=== PATIENT | male | born 1985 | race Caucasian/White ===

== ENCOUNTER 2020-09-11 08:39 | Outpatient (CLI) | payer BC, SELFPAY ==
--- NOTE | 2020-10-04 23:20 | WPDHOMESLEEP ---
Sleep Study - Home Unattended Date of Study: 09/11/20 Ordering Provider: Lexi Hodge NP Interpreting Provider: Magui Callahan MD Home Sleep Study Type: Apnea Link Air Height: 1.88 m Weight: 90.265 kg Body Mass Index: 25.5 Neck Circumference (inches): 16 [place]: 3 Reason for Sleep Study High blood pressure at the dentist, constant loud snoring Sleep History Ruy Spain is a 35 year old man who had high blood pressure discovered at the dentist; he was referred to [facility] where he was diagnosed with obstructive sleep apnea, and has been on CPAP which benefits him greatly. He does not wake up feeling short of breath or wake at night with heartburn, belching or coughing. He constantly snores loudly. Although he does not have trouble sleeping with a cold or waking at night gasping for breath, he frequently has breathing problems at night reported to him by others. He does not sweat excessively at night, have palpitations at night, fall asleep in the day, fall asleep involuntarily, or fall asleep while driving. He does not have loss of muscle tone with strong emotion, rarely has daytime difficulties due to excessive sleepiness, and does not have paralysis om waking or falling asleep. He rarely has vivid dream like scenes on waking or falling asleep. He is not afraid to go to sleep. He rarely has nightmares, occasionally remembers his dreams. He denies racing thoughts. He rarely feels sad or depressed, rarely has anxiety, Rarely has muscular tension, notice parts of his body jerking, and never notes kicking at night. He does not have uncomfortable crawling feelings in his legs at night. He does not have leg pain at night. He does not have leg pain at night, rarely grinds his teeth at night. He is not bothered by pain in the day, not awakened bu pain at night. He occasionally wakes up feeling stiff in the morning. He does not wake with sore muscles or pain the joints and spine. There is a family history of sleep apnea in his parents. He has occasional nasal congestion and uses Afrin nasal spray for 3 days when needed. He was diagnosed with obstructive with sleep apnea 4-5 years ago, and does not know the settings. He has lost 80 lb since he was diagnosed with hypertension 4-5 years ago. He uses CPAP regularly, and feels fatigued when he does not use it. Normal bedtime is 8:00 p.m. falling asleep in less than a minutes, waking 1-2 times at night for 30 seconds, uses the bathroom and returns to sleep. He wakes at 3:35 a.m. when he works. He works shift work. On the days he is not working, he goes to bed at 9:00 p.m., wakes between 8:00 a.m. and 9:00 a.m. He does not takes naps in the afternoon. A short nap may be refreshing. He feels good most mornings on waking. He feels better in the morning compared to other times of day. Habits: Never smoked tobacco. Caffeine 3-4 cups coffee a day; Alcohol 2-3 per week, no recreational drugs. [facility] Past Medical History Medical History BMI 26.0-26.9,adult Encounter to establish care Excess sun exposure HTN (hypertension) Lumbago without sciatica GAVIOTA on CPAP Seasonal allergies Family History Family History (Updated 05/24/20 @ 10:06 by Jerardo Soto CMA) Father Cancer Heart disease Sibling Heart disease Grandparent Cancer Hypertension Grandparent Cancer Hypertension Heart disease Social History Social History (Updated 05/24/20 @ 10:07 by Jerardo Soto CMA) Smoking status: Never smoker Alcohol intake: current Substance use: never Medications Home Medications Medication Instructions Recorded Confirmed Type No Home Medications 05/24/20 05/24/20 History Sleep Procedure This test was performed using 4 channel monitoring including respiratory effort channel, snoring channel, heart rate channel, and oxygen saturation channel. This study was scored using [facility] guidelines. Sleep Architecture
[2020-10-04 23:58] VITALS: BMI 25.5
== END 2020-09-12 09:59 | disposition home or self-care (01) ==
PROVIDERS: PCP Nurse Practitioner Family; Visit Provider Nurse Practitioner Family
DX: G47.33 Obstructive sleep apnea (adult) (pediatric) (principal); Z99.89 Dependence on other enabling machines and devices
CPT/HCPCS: 95806

== ENCOUNTER 2020-10-31 07:41 | Outpatient (CLI) | payer BC, SELFPAY | END 2020-11-01 02:59 | disposition hospice, home (50) | LOC: ANHCSM 07:44 | PROVIDERS: PCP Nurse Practitioner Family; Visit Provider Nurse Practitioner Family | DX: G47.33 Obstructive sleep apnea (adult) (pediatric) (principal) | CPT/HCPCS: 95811; 99199 ==

== ENCOUNTER 2020-12-04 07:30 | Outpatient (CLI) | payer BC, SELFPAY ==
[2020-12-23 16:28] VITALS: BMI 25.4
--- NOTE | 2020-12-23 16:28 | WPDSLEEPSTUD ---
Sleep Study Date of Study: 12/04/20 Ordering Provider: Lexi Hodge NP Interpreting Physician: Magui Callahan MD Sleep Study Type: Polysomnogram Height: 1.88 m Weight: 90.038 kg Body Mass Index: 25.4 Neck Circumference (inches): 16 [place]: 3 Reason for Sleep Study * High blood pressure at the dentist, constant loud snoring; a home sleep test using ApneaLink September 11, 2020 without sleep-disordered breathing; apnea-hypopnea index is normal 1.3, lowest saturation is 89%, and snoring is mild. He presents for an in-lab sleep study. Sleep History Ruy Spain is a 35 year old man who had high blood pressure discovered at the dentist; he was referred to [facility] where he was diagnosed with obstructive sleep apnea, and has been on CPAP which benefits him greatly. He does not wake up feeling short of breath or wake at night with heartburn, belching or coughing. He constantly snores loudly. Although he does not have trouble sleeping with a cold or waking at night gasping for breath, he frequently has breathing problems at night reported to him by others. He does not sweat excessively at night, have palpitations at night, fall asleep in the day, fall asleep involuntarily, or fall asleep while driving. He does not have loss of muscle tone with strong emotion, rarely has daytime difficulties due to excessive sleepiness, and does not have paralysis om waking or falling asleep. He rarely has vivid dream like scenes on waking or falling asleep. He is not afraid to go to sleep. He rarely has nightmares, occasionally remembers his dreams. He denies racing thoughts. He rarely feels sad or depressed, rarely has anxiety, Rarely has muscular tension, notice parts of his body jerking, and never notes kicking at night. He does not have uncomfortable crawling feelings in his legs at night. He does not have leg pain at night. He does not have leg pain at night, rarely grinds his teeth at night. He is not bothered by pain in the day, not awakened by pain at night. He occasionally wakes up feeling stiff in the morning. He does not wake with sore muscles or pain the joints and spine. There is a family history of sleep apnea in his parents. He has occasional nasal congestion and uses Afrin nasal spray for 3 days when needed. He was diagnosed with obstructive with sleep apnea 4-5 years ago, and does not know the settings. He has lost 80 lb since he was diagnosed with hypertension 4-5 years ago. He uses CPAP regularly, and feels fatigued when he does not use it. Normal bedtime is 8:00 p.m. falling asleep in less than a minutes, waking 1-2 times at night for 30 seconds, uses the bathroom and returns to sleep. He wakes at 3:35 a.m. when he works. He works shift work. On the days he is not working, he goes to bed at 9:00 p.m., wakes between 8:00 a.m. and 9:00 a.m. He does not takes naps in the afternoon. A short nap may be refreshing. He feels good most mornings on waking. He feels better in the morning compared to other times of day. Habits: Never smoked tobacco. Caffeine 3-4 cups coffee a day; Alcohol 2-3 per week, no recreational drugs. [facility] Past Medical History Medical History BMI 26.0-26.9,adult Encounter to establish care Excess sun exposure HTN (hypertension) Lumbago without sciatica GAVIOTA on CPAP Seasonal allergies Family History Family History Father Cancer Heart disease Sibling Heart disease Grandparent Cancer Hypertension Grandparent Cancer Hypertension Heart disease Social History Social History Smoking status: Never smoker Alcohol intake: current Substance use: never Medications Home Medications Medication Instructions Recorded Confirmed Type No Home Medications 05/24/20 05/24/20 History Sleep Procedure This test was performed using the S
== END 2020-12-05 02:34 | disposition home or self-care (01) ==
LOC: ANHCSM 07:30
PROVIDERS: PCP Nurse Practitioner Family; Visit Provider Nurse Practitioner Family
DX: G47.33 Obstructive sleep apnea (adult) (pediatric) (principal)
CPT/HCPCS: 95810

== ENCOUNTER 2023-05-09 11:43 | Observation (INO) | payer OTHER, SELFPAY ==
[2023-05-09] VITALS (37 sets, daily range): BP systolic 111–161; BP diastolic 69–118; PULSE 78–194; RESP 10–24; TEMP 36.7–36.8; O2SAT 96–100; BMI 32.6
--- NOTE | ~2023-05-09 | XR_ITS ---
XR chest 2V DATE: 05/09/2023 12:31 INDICATION: Palpitations. Superventricular tachycardia. TECHNIQUE: PA and lateral views COMPARISON: 11/12/2005 portable AP chest FINDINGS: Normal heart size. No hilar or mediastinal enlargement. No pulmonary infiltrate or consolid ation, pleural effusion or pulmonary vascular congestion or pneumothorax is detected. IMPRESSION: No active cardiopulmonary disease Reviewed, dictated and finalized at location A.
--- NOTE | 2023-05-09 11:49 | ECG_ITS ---
Measurements Intervals [place] Rate: 170 P: [place]: 0 QRS: 33 QRSD: 71 T: 50 QT: 245 QTc: 413 Interpretive Statements ATRIAL FIBRILLATION WITH RAPID VENTRICULAR RESPONSE NONSPECIFIC T-WAVE ABNORMALITY- INF/LAT LEADS BASELINE ARTIFACT- I, II, III, AVR, AVL, AVF, V4-V6 ABNORMAL ECG NO PREVIOUS ECG AVAILABLE FOR COMPARISON Electronically Signed On 05-09-2023 16:52:33 CDT by Mihir Olsen D.O.
[2023-05-09 11:56] LABS: Basophils Absolute Auto 0.1 K/mm3 (0.0-0.1); Basophils Percent Auto 1.3 % (0.2-1.2); Eosinophils Absolute Auto 0.1 K/mm3 (0-0.3); Hematocrit 52.4 % (42.0-52.0); Hemoglobin 17.7 g/dL (14.0-18.0); Immature Granulocyte Absolute 0.01 K/mm3 (0.00-0.031); Immature Granulocyte Percent A 0.1 % (0-0.5); Lymphocytes Absolute Auto 3.27 K/mm3 (0.9-3.2); Lymphocytes Percent Auto 47.2 % (18.3-44.2); Mean Corpuscular HGB Conc 33.8 g/dl (32-36); Mean Corpuscular Hemoglobin 29.8 pg (26-34); Mean Corpuscular Volume 88.4 fl (80-100); Mean Platelet Volume 9.4 fl (7.4-10.4); Monocytes Absolute Auto 0.7 K/mm3 (0.1-0.6); Monocytes Percent Auto 10.2 % (2.6-8.5); Neutrophils Absolute Auto 2.8 K/mm3 (1.3-6.7); Neutrophils Percent Auto 40.2 % (45.5-73.1); Platelet Count Result 233 k/mm3 (150-375); Red Blood Count 5.93 M/mm3 (4.6-6.20); Red Cell Distribution Width 12.8 % (11.5-14.5); White Blood Count 6.9 K/mm3 (4.5-10.0)
[2023-05-09] MEDS: dilTIAZem 100 MG/100 ML 100 MG/100 ML BAG IV CONT ×2 (11:56→19:22)
[2023-05-09] MEDS: dilTIAZem HCl INJ 25 MG/5 ML VIAL 20 MG IV PUSH (11:56)
[2023-05-09] MEDS: LACTATED RINGERS 1,000 ML 999 ML IV CONT ×3 (12:03→19:22)
--- NOTE | 2023-05-09 12:06 | ECG_ITS ---
Measurements Intervals [place] Rate: 92 P: [place]: 0 QRS: 38 QRSD: 81 T: 120 QT: 309 QTc: 382 Interpretive Statements ATRIAL FIBRILLATION NONSPECIFIC T-WAVE ABNORMALITY- INF/HIGH LAT LEADS ABNORMAL ECG COMPARED TO ECG 05/09/2023 11:51:54 HEART RATE HAS DECREASED Electronically Signed On 05-09-2023 16:53:34 CDT by Mihir Olsen D.O.
[2023-05-09 12:07] LABS: Alanine Aminotransferase 63 U/L (6-50); Albumin Level 4.6 g/dL (3.5-5.1); Alkaline Phosphatase 49 U/L (38-126); Anion Gap 10 mmol/L (4-12); Aspartate Amino Transferase 35 U/L (17-59); Bilirubin,Total 0.7 mg/dL (0.2-1.3); Blood Urea Nitrogen 17 mg/dL (9-20); Calcium 10.1 mg/dL (8.4-10.2); Carbon Dioxide 27 mmol/L (22-30); Chloride 104 mmol/L (98-107); Estimated CRCL calculation 105 ml/min; Estimated Glomerular Filt Rate > 60; Glucose 92 mg/dL (65-110); Lipase 134 U/L (23-300); Potassium 3.9 mmol/L (3.4-5.0); Sodium 141 mmol/L (137-145)
[2023-05-09 12:17] LABS: INR 0.8; Prothrombin Time 11.6 Seconds (11.1-14.7)
[2023-05-09 12:18] LABS: Partial Thromboplastin Time 26.3 Seconds (22.3-36.8); Troponin I < 0.012 ng/mL (0.000-0.034)
[2023-05-09] MEDS: dilTIAZem HCL 30 MG TABLET PO ×2 (12:36→14:40)
[2023-05-09] MEDS: dilTIAZem HCl INJ 25 MG/5 ML VIAL 10 MG IV PUSH ×2 (13:16→19:22)
[2023-05-09] MEDS: METOPROLOL TARTRATE INJ 5 MG/5 ML VIAL IV PUSH (14:39)
[2023-05-09] MEDS: METOPROLOL TARTRATE 25 MG TABLET PO (14:39)
--- NOTE | 2023-05-09 14:57 | ECG_ITS ---
Measurements Intervals [place] Rate: 103 P: [place]: 0 QRS: 34 QRSD: 82 T: 0 QT: 311 QTc: 409 Interpretive Statements ATRIAL FIBRILLATION WITH RAPID VENTRICULAR RESPONSE VENTRICULAR PREMATURE COMPLEXES NONSPECIFIC T-WAVE ABNORMALITY- INF/LAT LEADS BASELINE ARTIFACT- III, AVR, AVL, V6 ABNORMAL ECG COMPARED TO ECG 05/09/2023 12:08:23 HEART RATE HAS INCREASED Electronically Signed On 05-09-2023 17:05:48 CDT by Mihir Olsen D.O.
[2023-05-09 15:21] LABS: Troponin I < 0.012 ng/mL (0.000-0.034)
--- NOTE | 2023-05-09 15:51 | ED.ARRPALP ---
HPI - Arrhythmia/Palpitations General Chief Complaint: Arrhythmia/Palpitations Stated Complaint: SVT History of Present Illness HPI narrative: Patient with a strong family history of atrial fibrillation and other arrhythmia presents here after being found to be in AFib with RVR at work today, he states that he had been feeling little bit stranger than usual the last few weeks, and yesterday he had eaten some ice cream and since then has been feeling like his heart was racing and it was harder to catch his breath. Related Data Home Medications Medication Instructions Recorded Confirmed clotrimazole-betamethasone 1 1 applic topical BID 08/29/22 08/29/22 %-0.05 % lotion Allergies Allergy/AdvReac Type Severity Reaction Status Date / Time No Known Allergies Allergy Verified 08/29/22 11:18 Review of Systems Review of Systems: CONST: No fever. HEENT: No sore throat C/V: palpitations RESP: slightly short of breath GI: No abdominal pain : No dysuria. M/S: No joint pain. SKIN: No rash. NEURO: [No headache or focal numbness or weakness] PSYCH: [No depression] [facility] Past Medical History Medical History (Updated 05/09/23 @ 16:12 by Basia Neumann MD) BMI 26.0-26.9,adult BMI 30.0-30.9,adult Encounter to establish care Excess sun exposure HTN (hypertension) Lumbago without sciatica GAVIOTA on CPAP Screening for diabetes mellitus Seasonal allergies Family History Family History Father Cancer Heart disease Sibling Heart disease Grandparent Cancer Hypertension Grandparent Cancer Hypertension Heart disease Social History Social History (Updated 08/29/22 @ 11:20 by Lauren Cormier [facility]) Smoking status: Never smoker Alcohol intake: current Alcohol use details: Rarely Substance use: never Exam Narrative: EXAMINATION OF ORGAN SYSTEMS/BODY AREAS: Constitutional: Vital signs per nursing GENERAL:[No acute distress, non-toxic appearing.] HEAD: Normal with no signs of head trauma. EYES: EOMI, conjunctiva normal ENT: Hearing grossly intact LUNGS: Nonlabored breathing. HEART: fast, irregularly irregular ABD: [Soft], [nontender to palpation] EXT: Normal range of motion SKIN: [No rashes or lesions.] NEURO: [Alert and oriented x 3. No gross focal sensory or strength deficits.] PSYCH: Normal affect Course Vital Signs Vital signs: Vital Signs Temperature 98.2 F 05/09/23 11:43 Pulse Rate 190 H 05/09/23 11:43 Respiratory Rate 22 H 05/09/23 11:43 Blood Pressure 150/104 H 05/09/23 11:43 Pulse Oximetry 98 05/09/23 11:43 Oxygen Delivery Room Air 05/09/23 11:43 Temperature 98.2 F 05/09/23 11:43 Pulse Rate 92 05/09/23 15:08 Respiratory Rate 19 05/09/23 15:08 Blood Pressure 161/92 H 05/09/23 14:40 Pulse Oximetry 97 05/09/23 15:08 Oxygen Delivery Room Air 05/09/23 11:59 MDM - Arrhythmia/Palpitations MDM Narrative Medical decision making narrative: 37 male patient presenting with AFib with RVR on telemetry and EKG. Initial EKG at 11:51 a.m. showing AFib with RVR rate 170, no obvious ST elevations or depressions. Chest x-ray on my independent interpretation without any obvious consolidations or pneumothorax. IV fluids started, I did initially trial dose of diltiazem with p.o., his chads Vasc score is 0. Heart rate did improve from 170-130, I did try another dose, and it did improve now to 120s, but did not stay consistently below 110. I did discuss this with the chemical process operator on-call, did try metoprolol which did bring heart rate to the 90s, but would occasionally still go up to 120s to 130 given this and his extensive family history, and discussion with the patient, he would prefer to be admitted at this time for further evaluation and treatment and I feel this is quite reasonable. Discussed with hospitalist for admission. Lab Data 05/09/23 11:52
--- NOTE | 2023-05-09 19:02 | PM.IMHP ---
H&P: HPI History of Present Illness Date/Time: 05/09/23 19:02 Chief Complaint: Palpitations Narrative: 37 y/o M presents here with palpitations with PMH of HTN (resolved with weight loss, no longer on medications), GAVIOTA (resolved with weight loss), and seasonal allergies. Patient presents here from work via EMS for further evaluation of palpitations. Patient initially started having palpitations last night around 1900. Initially patient had icy hot sensation midsternal, felt as though he was unable to take a deep breath, constant, GERD-like and no associated pain. Patient then went to bed with the symptoms. Patient woke up around 0500 with same symptoms, but were slightly less than the night before. No associated nausea, jaw pain, shoulder pain, neck pain, shortness of breath or pain. Patient then went to be evaluated at his workplace and was directed to go to the ED. No alleviating or aggravating factors identified by patient. No previous similar episodes. No personal history of dysrhythmia or cardiac issues. Does have strong family history of cardiac diagnoses: CAD, AFib, arrhythmias, and Mqydm-Slphgobye-Gzovh. Brother had WPW at age 16, otherwise no early heart disease. Caffeine intake approximated one 20 oz black coffee per day. Occasional cigar - approximates it at once every 4 months. Initial VS at presentation: 98.2? F, HR 190, RR 22, 150/104, and 98% on RA. ED workup showed: No leukocytosis, no anemia, chemistries unremarkable, creatinine 1.0, ALT 63, troponin negative x2. CXR showed no active cardiopulmonary disease. Initial EKG showed AFib with RVR with a rate of 170. Review of Systems Review of Systems: All systems reviewed & are unremarkable except as noted in HPI and below PMFSH Past Medical History Medical History Excess sun exposure HTN (hypertension) resolved with weight loss Lumbago without sciatica GAVIOTA on CPAP resolved with weight loss Seasonal allergies Surgical History Surgical History (Updated 05/10/23 @ 01:49 by Cassandra Garcia APRN) History of wisdom tooth extraction Family History Family History Father Heart disease Sibling Heart disease Grandparent Hypertension Grandparent Heart disease Hypertension Sibling Cancer Social History Social History Smoking status: Light tobacco smoker Additional smoking assessment comments: Occasional cigar Alcohol intake: current Drinks per week: 3 Alcohol use details: Rarely Substance use: never Do You Feel Safe in your Home?: Yes Lack of Transportation: No Lack of Food: Never True Current Housing: I Have Housing Concerned About Future Housing: No Difficulty Paying Gas/Electric Bills: No Difficulty Paying for Meds: No Currently Unemployed: No Education: Bachelor's Degree Difficulty w/ Childcare or Family Care: No Spiritual care concerns: No Meds Home Medications and Allergies Home Medications Medication Instructions Recorded Confirmed Type No Home Medications 05/09/23 05/09/23 History Allergies Allergy/AdvReac Type Severity Reaction Status Date / Time No Known Allergies Allergy Verified 08/29/22 11:18 Vital Signs Vital Signs - 24 hr 05/09/23 11:43 05/09/23 11:50 05/09/23 11:56 Temperature 98.2 F Pulse Rate 190 H 194 H 181 H Respiratory Rate 22 H Blood Pressure 150/104 H 150/104 H Pulse Oximetry 98 Oxygen Delivery Room Air 05/09/23 11:59 05/09/23 11:59 05/09/23 12:10 Temperature Pulse Rate 108 H 97 Respiratory Rate 23 H 17 Blood Pressure 143/95 H Pulse Oximetry 98 98 97 Oxygen Delivery Room Air 05/09/23 12:15 05/09/23 12:16 05/09/23 12:43 Temperature Pulse Rate 85 85 110 H Respiratory Rate 22 H Blood Pressure 143/95 H 143/95 H 136/118 H Pulse Oximetry 97 Oxygen Del
[2023-05-09 19:50] LABS: Troponin I < 0.012 ng/mL (0.000-0.034)
--- NOTE | 2023-05-09 21:20 | ADMGEN ---
This patient, Ruy Spain, was admitted to IMU Room 211-01. Patient/family oriented to hospital policies and general routines including ID bracelet, bed and alarms, visiting hours, pain management, procedures, bathroom and other care routines, personal items, smoking policy, room service/diet, and visiting hours. Information on how to activate the Rapid Response Team has been discussed. Patient/Family are encouraged to report perceived risks to care and to ask questions if they do not understand what they are told or what they should do.
[2023-05-09] MEDS: ENOXAPARIN 40 MG/0.4 ML SYRINGE SUB-Q (23:04)
[2023-05-09 23:20] LABS: D Dimer 0.35 ug/mL (<0.48)
[2023-05-10] VITALS (15 sets, daily range): BP systolic 106–131; BP diastolic 62–92; PULSE 59–119; RESP 15–20; TEMP 36.4–36.8; O2SAT 97–100
[2023-05-10] MEDS: dilTIAZem HCl INJ 25 MG/5 ML VIAL IV PUSH (01:05)
--- NOTE | 2023-05-10 02:50 | ECG_ITS ---
Measurements Intervals [place] Rate: 70 P: 240 [place]: 133 QRS: 34 QRSD: 86 T: 0 QT: 382 QTc: 413 Interpretive Statements ECTOPIC ATRIAL RHYTHM NONSPECIFIC T-WAVE ABNORMALITY- DIFFUSE LEADS ABNORMAL ECG COMPARED TO ECG 05/09/2023 15:14:53 ECTOPIC ATRIAL RHYTHM NOW PRESENT Electronically Signed On 05-10-2023 8:13:27 CDT by Mihir Olsen D.O.
[2023-05-10 04:51] LABS: Basophils Absolute Auto 0.1 K/mm3 (0.0-0.1); Basophils Percent Auto 1.4 % (0.2-1.2); Eosinophils Absolute Auto 0.1 K/mm3 (0-0.3); Eosinophils Percent Auto 1.8 % (0-4.4); Hematocrit 50.5 % (42.0-52.0); Hemoglobin 16.8 g/dL (14.0-18.0); Immature Granulocyte Absolute 0.02 K/mm3 (0.00-0.031); Immature Granulocyte Percent A 0.3 % (0-0.5); Lymphocytes Absolute Auto 2.91 K/mm3 (0.9-3.2); Lymphocytes Percent Auto 46.7 % (18.3-44.2); Mean Corpuscular HGB Conc 33.3 g/dl (32-36); Mean Corpuscular Hemoglobin 29.9 pg (26-34); Mean Platelet Volume 9.6 fl (7.4-10.4); Monocytes Absolute Auto 0.6 K/mm3 (0.1-0.6); Monocytes Percent Auto 9.1 % (2.6-8.5); Neutrophils Absolute Auto 2.5 K/mm3 (1.3-6.7); Neutrophils Percent Auto 40.7 % (45.5-73.1); Platelet Count Result 206 k/mm3 (150-375); Red Blood Count 5.61 M/mm3 (4.6-6.20); Red Cell Distribution Width 12.8 % (11.5-14.5); White Blood Count 6.2 K/mm3 (4.5-10.0)
[2023-05-10 05:12] LABS: Alanine Aminotransferase 63 U/L (6-50); Albumin Level 4.1 g/dL (3.5-5.1); Alkaline Phosphatase 52 U/L (38-126); Anion Gap 5 mmol/L (4-12); Aspartate Amino Transferase 37 U/L (17-59); Bilirubin,Total 0.7 mg/dL (0.2-1.3); Blood Urea Nitrogen 21 mg/dL (9-20); Calcium 9.1 mg/dL (8.4-10.2); Carbon Dioxide 30 mmol/L (22-30); Chloride 104 mmol/L (98-107); Estimated CRCL calculation 122 ml/min; Estimated Glomerular Filt Rate > 60; Glucose 96 mg/dL (65-110); Magnesium 2.1 mg/dL (1.6-2.3); Phosphorus 5.4 mg/dL (2.5-4.5); Potassium 4.1 mmol/L (3.4-5.0); Sodium 139 mmol/L (137-145)
--- NOTE | 2023-05-10 08:45 | ECG_ITS ---
Measurements Intervals [place] Rate: 75 P: 34 [place]: 155 QRS: 23 QRSD: 75 T: 43 QT: 346 QTc: 389 Interpretive Statements SINUS RHYTHM EARLY PRECORDIAL R/S TRANSITION NONSPECIFIC T-WAVE ABNORMALITY- INF/HIGH LAT LEADS BORDERLINE ECG COMPARED TO ECG 05/10/2023 02:59:32 SINUS RHYTHM NOW PRESENT Electronically Signed On 05-10-2023 11:00:02 CDT by Mihir Olsen D.O.
[2023-05-10] MEDS: METOPROLOL TARTRATE 25 MG TABLET PO ×2 (09:03→12:08)
[2023-05-10] MEDS: ENOXAPARIN 40 MG/0.4 ML SYRINGE SUB-Q (09:03)
--- NOTE | 2023-05-10 12:16 | PM.CNCAR ---
Assessment and Plan Assessment and plan (1) Atrial fibrillation with rapid ventricular response: Code(s): I48.91 - Unspecified atrial fibrillation Status: Acute Assessment and Plan: Patient presents with symptomatic atrial fibrillation with very rapid ventricular response currently in sinus rhythm after IV diltiazem and oral metoprolol. Patient has a strong family history of atrial fibrillation. He does not have a prior diagnosis of [id number]-Ayxybgcoq-Ypfyy unlike his brother. His ECG reveals subtle slurring of the QR but not clearly consistent with WPW. Extensively discussed pathophysiology with atrial fibrillation bleeding medical management, triggers, embolic stroke risk versus bleeding risk benefits of anticoagulation versus aspirin, management options including medications, ablation and or observation. We discussed contributing conditions at length. His CHADS2 Vasc score is 1 secondary to hypertension. As such, aspirin 81 mg daily is reasonable for embolic stroke risk reduction. He is interested in referral to electrophysiology for discussion regarding rejection ablation options. We discussed relative pros and cons in this regard given his age. He states that he would prefer to avoid medications if possible. -Increase metoprolol to 50 mg twice daily. Add aspirin 81 mg daily. Monitor heart rate and blood pressure closely. Discussed side effects risks and benefits. Patient states given familiarity with his father's template checker he will go ahead and follow up with him as an outpatient Dr Olivas. -2D echocardiogram to assess LV size/function, chamber size, valve pathology pulmonary pressures will be obtained as an outpatient basis. -patient stable from cardiac perspective for discharge per hospitalist service. I spent 82 minutes in the care of this patient including discussion and examination bedside with the patient, family, chart review, medical decision making, and documentation. (2) HTN (hypertension): Qualifiers: Hypertension type: primary hypertension Qualified Code(s): I10 - Essential (primary) hypertension Code(s): I10 - Essential (primary) hypertension Status: Acute Assessment and Plan: BP somewhat variable marginally controlled. Will observe response on metoprolol. Benefit of additional antihypertensive to be determined moving forward. (3) Family history of atrial fibrillation: Code(s): Z82.49 - Family history of ischemic heart disease and other diseases of the circulatory system Status: Acute Assessment and Plan: Patient has several family members with atrial fibrillation including his father and brother as discussed above. Outpatient referral to electrophysiology. (4) History of obstructive sleep apnea: Code(s): Z86.69 - Personal history of other diseases of the nervous system and sense organs Status: Acute Assessment and Plan: Consider repeat sleep study an outpatient. We discussed this association with increasing frequency for tachyarrhythmias including atrial fibrillation if he has residual untreated obstructive sleep apnea. History of Present Illness History of Present Illness Consult date/time: Date of service: 05/10/23 12:16 Requesting physician: Cassandra Garcia APRN Consult reason: atrial fibrillation Reason For Visit: Afib RVR Narrative: Patient is a very pleasant 37-year-old male with past medical history severe hypertension, remote history of GAVIOTA resolved who presented emergency department due to complaints of chest discomfort and rapid palpitations. Patient states evening prior to presentation he was sitting with his girlfriend watching moving after having had dinner and ice cream experience, icy hot sensation in the midchest but no significant discomfort or social shortness of breath. The symptoms were constant for were not terribly bothersome. States he then went to sleep and woke up the following morning his symptom
--- NOTE | 2023-05-10 13:48 | PM.DS ---
DS: Admitting Diagnosis Discharge Date 05/10/23 Admitting Diagnosis Palpitations DS: Discharge Diagnosis Discharge Diagnosis (1) Atrial fibrillation with rapid ventricular response: Code(s): I48.91 - Unspecified atrial fibrillation Status: Acute (2) HTN (hypertension): Qualifiers: Hypertension type: primary hypertension Qualified Code(s): I10 - Essential (primary) hypertension Code(s): I10 - Essential (primary) hypertension Status: Acute (3) History of obstructive sleep apnea: Code(s): Z86.69 - Personal history of other diseases of the nervous system and sense organs Status: Acute DS: Summary Hospital Course Reason for hospitalization: 37yo male with PMH of HTN (resolved with weight loss, no longer on medications), GAVIOTA (resolved with weight loss), and seasonal allergies who presents here with palpitations. Please see H&P for details. Hospital Course: Heart rate was 190 on admission. CBC was normal. DDimer was negative. CMP normal except for isolated elevation of ALT. Troponin negative x3. Initial EKG showing AFib with RVR with a rate of 170, nonspecific T-wave abnormality inferior and lateral leads, baseline artifact.? No previous EKG available for comparison. CXR showing no active cardiopulmonary disease. TSH normal. He was given metoprolol IVP and p.o., diltiazem IVP and p.o., and 3L LR in ED with reduction of heart rate into the 120's. He was started on diltiazem drip and converted to normal sinus rhythm. Cardiology consulted and apprecaite their input. CHADSVasc: 1. He was switched to metoprolol and ASA added. He overall did well and was able to be discharged home on 05/10/23. Status at Discharge Cognitive/behavioral status at discharge: stable Time Spent with Patient Time attestation: Total time spent providing and/or coordinating discharge services: 35 minutes Time spent: Greater than 30 minutes Exam Narrative: AF 97.8 131/92 72 16 97% ra Gen - NARD Chest - CTA bilaterally, nml RR CV - RRR S1/S2. Tele showing AFib that converted to NSR. Abd - Soft, NT/ND, Positive BS Ext - No pedal edema Psych - Nml mood and affect Skin - Warm and dry DS: Data Data Completed and Pending Labs on day of discharge: Labs from last 24 hours 05/10/23 05/09/23 05/09/23 04:13 22:18 19:16 WBC 6.2 RBC 5.61 Hgb 16.8 Hct 50.5 MCV 90.0 MCH 29.9 MCHC 33.3 RDW 12.8 Plt Count 206 MPV 9.6 Immature Gran % (Auto) 0.3 Neut % (Auto) 40.7 L Lymph % (Auto) 46.7 H [place] % (Auto) 9.1 H Eos % (Auto) 1.8 Baso % (Auto) 1.4 H Lymph # (Auto) 2.91 [place] # (Auto) 0.6 Eos # (Auto) 0.1 Baso # (Auto) 0.1 Abs Immat Gran (auto) 0.02 Absolute Neuts (auto) 2.5 Absolute Nucleated RBC 0.000 Nucleated RBC % 0.0 D-Dimer 0.35 Sodium 139 Potassium 4.1 Chloride 104 Carbon Dioxide 30 Anion Gap 5 L BUN 21 H Creatinine 1.00 Estim Creat Clear Calc 122 Estimated GFR > 60 Glucose 96 Calcium 9.1 Phosphorus 5.4 H Magnesium 2.1 Total Bilirubin 0.7 AST 37 ALT 63 H Alkaline Phosphatase 52 Troponin I Total Protein 7.0 Albumin 4.1 TSH 3.900 05/09/23 05/09/23 19:11 14:55 WBC RBC Hgb Hct MCV MCH MCHC RDW Plt Count MPV Immature Gran % (Auto) Neut % (Auto) Lymph % (Auto) [place] % (Auto) Eos % (Auto) Baso % (Auto) Lymph # (Auto) [place] # (Auto) Eos # (Auto) Baso # (Auto) Abs Immat Gran (auto) Absolute Neuts (auto) Absolute Nucleated RBC Nucleated RBC % D-Dimer Sodium Potassium Chloride Carbon Dioxide Anion Gap BUN Creatinine Estim Creat Clear Calc Estimated GFR Glucose Calcium Phosphorus Magnesium Total Bilirubin AST ALT Alkaline Phosphatase Troponin I < 0.012 < 0.012 Total Protein Albumin TSH Discharge Plan Di
[2023-05-10] MEDS: ASPIRIN 81 MG ENTERIC TABLET PO (14:31)
[2023-05-10 16:00] LABS: Hepatitis C Virus Antibody Negative (Negative)
--- NOTE | 2023-05-12 07:51 | PC.NURSE ---
Hep C Ab is negative. Dr. Gerardo pires.
== END 2023-05-10 14:30 | disposition home or self-care (01) ==
LOC: ANHED 16:12 → ANHIMU 20:35
PROVIDERS: Internal Medicine; Student in an Organized Health Care Education/Training Program; Admitting Provider Emergency Medicine; Emergency Provider Emergency Medicine; PCP Nurse Practitioner Family; Visit Provider Hospitalist
DX: I48.91 Unspecified atrial fibrillation (principal); I10 Essential (primary) hypertension; Z86.69 Personal history of other diseases of the nervous system and sense organs; J30.2 Other seasonal allergic rhinitis; F17.220 Nicotine dependence, chewing tobacco, uncomplicated; F10.90 Alcohol use, unspecified, uncomplicated; Z79.899 Other long term (current) drug therapy; Z82.49 Family history of ischemic heart disease and other diseases of the circulatory system
CPT/HCPCS: 36415; 71046; 80053; 83690; 83735; 84100; 84443; 84484; 85025; 85380; 85610; 85730; 86803; 93005; 96365; 96366; 96372; 96375; 99285; A9270; G0378; J1650; J7120